=== PATIENT | female | born 1955 | race Caucasian/White ===

== ENCOUNTER → 2022-09-14 08:35 | Outpatient (CLI) | payer MEDICARE, SELFPAY ==
--- NOTE | ~2022-09-14 | MR_ITS ---
EXAMINATION: MR knee LT wo con DATE: 09/14/2022 09:11 INDICATION: Left knee pain TECHNIQUE: Magnetic resonance imaging (MRI) of the left knee was performed without intravenous contra st. Sequences included coronal PD-weighted FSE, coronal PD-weighted FS FSE, sagittal T2-weighted FSE , sagittal PD-weighted FS FSE and axial PD weighted fat saturated FSE. COMPARISON: None. FINDINGS: Medial compartment: Medial meniscus is normal. Articular cartilage is normal. Lateral compartment: Complex tear extending from the anterior to the posterior horn of the lateral meniscus. There is decr eased size of the lateral meniscal body resulting from posterior displacement of a meniscal flap loca qian along the caudal margin of the posterior horn of the meniscus. Partial-thickness cartilage loss w ith deep chondral ulceration and fissuring with mild underlying subarticular edema-like signal change at the lateral tibial plateau. Additional extensive deep chondral ulceration along the central to po sterior weightbearing lateral femoral condyle also small region of mild subarticular edema-like signa l change. Patellofemoral compartment: Partial-thickness chondral ulceration and deep fissuring at the patellar apical ridge and lateral fac et, the latter with small focus of underlying subarticular edema-like signal change. Additional parti al thickness chondral fissuring without degenerative subchondral changes centered around the cephalad aspect of the trochlear groove. Ligaments and tendons: Anterior and posterior cruciate ligaments are normal. The medial collateral ligament and fibular gayathri ateral ligament complex are normal. The extensor mechanism is normal. The visualized medial and later al hamstring tendons as well as the iliotibial band are normal. Fluid: Small left knee joint effusion. No loose osteochondral bodies identified. 5.0 x 2.0 x 1.8 cm Lama's cyst at the popliteal fossa. Osseous/other: Bone alignment is normal. No fracture or pathologic marrow replacing process. Indeterminate 2.0 x 1.7 x 1.1 cm hyperintense lesion with lobular margins situated in the knee popliteal fat along the poste rior margin of the distal femoral metaphysis. No evident central fatty hilum to suggest a lymph node. IMPRESSION: 1. Complex lateral meniscal tear including a displaced meniscal flap arising from the meniscal body a nd underlying the posterior horn. 2. 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 3. Mild patellofemoral osteoarthritis with additional small regions of high-grade chondromalacia. 4. Small left knee joint effusion and moderate-sized Lama's cyst. 5. Indeterminate 2.0 x 1.7 x 1.1 cm T2 hyperintense lesion in the deep popliteal fat abutting the pos terior margin of the distal femoral metaphysis, unclear whether solid, vascular or complex cystic. Co nsider obtaining additional postcontrast MRI imaging. Reviewed, dictated and finalized at location D. 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 Complex lateral meniscal tear including a displaced meniscal flap arising fr om the meniscal body and underlying the posterior horn. 2. Mild to moderate osteoarthritis in the lateral compartment with extensive mo derate and high-grade chondromalacia. 3. Mild patellofemoral osteoarthritis with additional small regions of high-gra de chondromalacia. 4. Small left knee joint effusion and moderate-sized Lama's cyst. 5. Indeterminate 2.0 x 1.7 x 1.1 cm T2 hyperintense lesion in the deep poplitea l fat abutting the posterior margin of the distal femoral metaphysis, unclear w hether solid, vascular or complex cystic. Consider obtaining additional postcon trast MRI imaging.
== END ==
PROVIDERS: PCP Family Medicine; Visit Provider Orthopaedic Surgery
DX: S83.272A Complex tear of lateral meniscus, current injury, left knee, initial encounter (principal); M94.262 Chondromalacia, left knee; M17.12 Unilateral primary osteoarthritis, left knee; M25.462 Effusion, left knee; M71.22 Synovial cyst of popliteal space [Baker], left knee; T14.90XA Injury, unspecified, initial encounter
CPT/HCPCS: 73721

== ENCOUNTER → 2022-10-06 09:36 | Outpatient (CLI) | payer MEDICARE, SELFPAY ==
--- NOTE | ~2022-10-06 | MR_ITS ---
MRI of the left knee Clinical history: Pain Technique: Coronal proton density and proton density-weighted images, sagittal proton-density and T2 fat-sat images, and axial proton-density fat-saturated images were acquired. Following intravenous ad ministration of 15 cc MultiHance gadolinium, T1-weighted fat-sat imaging was performed in the axial, coronal, and sagittal planes. COMPARISON: 09/14/2022 Findings: Anterior and posterior cruciate ligaments are intact. Also mild mucoid degenerative change of the ACL. Medial collateral ligament is intact. Lateral collateral ligament complex is intact. Popl iteus tendon is intact. Medial meniscus is intact, without evidence of tear. There is extensive complex tearing throughout th e lateral meniscus, the posterior horn and body in particular having a macerated appearance. There is high-grade chondromalacia involving the lateral tibial plateau. There is mild chondromalacia patella. Remaining articular cartilage is relatively well preserved. Extensor mechanism is intact. Small joint effusion present with [id number] Lama's cyst. As se en on prior exam, there is a 1.9 x 1.2 x 1.5 cm mass posterior to the distal femur, with intrinsic hy perintense signal in both fluid sensitive and T1-weighted sequences, without postcontrast enhancement . There is extensive synovial enhancement in the knee. No other abnormal postcontrast enhancement see n. Impression: 1.9 x 1.2 x 1.5 cm nonenhancing mass posterior to the distal femur, as seen on recent prior exam. Fin dings are most compatible with ganglion cyst with complex/proteinaceous fluid given intrinsic T1 hype rintensity. Other findings are unchanged from recent prior exam. Extensive complex tearing of the lateral meniscu s, and mild to moderate osteoarthritic change, worst in the lateral compartment, as seen on prior exa m. Small joint effusion and moderate Lama's cyst. Extensive synovial enhancement could reflect an element of synovitis related to underlying osteoarthr itic change. Reviewed, dictated and finalized at location M. [employer] Impression: 1.9 x 1.2 x 1.5 cm nonenhancing mass posterior to the distal femur, as seen on recent prior exam. Findings are most compatible with ganglion cyst with complex /proteinaceous fluid given intrinsic T1 hyperintensity. Other findings are unchanged from recent prior exam. Extensive complex tearing of the lateral meniscus, and mild to moderate osteoarthritic change, worst in t he lateral compartment, as seen on prior exam. Small joint effusion and moderate Lama's cyst. Extensive synovial enhancement could reflect an element of synovitis related to underlying osteoarthritic change.
== END ==
PROVIDERS: PCP Family Medicine; Visit Provider Orthopaedic Surgery
DX: M25.562 Pain in left knee (principal); R22.42 Localized swelling, mass and lump, left lower limb; S83.272A Complex tear of lateral meniscus, current injury, left knee, initial encounter; M17.12 Unilateral primary osteoarthritis, left knee; M25.462 Effusion, left knee; M71.22 Synovial cyst of popliteal space [Baker], left knee
CPT/HCPCS: 73723; A9577